=== PATIENT | male | born 1995 | race Caucasian/White ===

== ENCOUNTER 2020-07-23 11:18 | Inpatient (IN) | payer BC ==
[2020-07-23] MEDS ORDERED: Vancomycin 1 GM/200 ML BAG ONE (16:05)
[2020-07-23] MEDS ORDERED: Cefepime 2 GM VIAL ONE (16:05)
--- NOTE | 2020-07-23 16:16 | PDOC.HHP ---
Hospitalist HPI LLE pain History of Present Illness: Ms. Ross is a 25 year-old male with a PMHx of morbid obesity, MARTHA, and cellu litis who presents as a transfer from [facility] for LLE cellulitis. Patient reports that yesterday he noticed pain and redness to his L cervantes. Endorses fever to 103 prior to admission. Pt has a history of cellulitis in the same leg two prior times. Denies any trauma to the area. No history of diabetes. Denies chest pain, SOB, abdominal pain. Denies night sweats or chills. In ER initial vital signs 130/80, 86, 16, 99%. EKG with no ischemic changes. Lactic acid 0.95. CBC pending due to system wide delays winter. CBC at [facility] showed WBC of 17.9. Foot XR with no gas. BUn/Cr 10/0.82. Pt received vancomycin, cefepime at [facility] as well as 3 L NS. Patient septic and tachycardic to 120s at [facility]. Now improved s/p fluids. Pt admitted to hospitalist service for sepsis and cellulitis. Past History: PMHx: Cellulitis MARTHA PSHx: None FHx: Denies fhx of heart disease, DM, cancer Social: Denies tobacco, etoh, or drug use Hospitalist HPI ROS Constitutional: reports: fever, malaise. denies: chills, sweats, weakness, other Eyes: denies: pain, vision change, conjunctivae inflammation, eyelid inflammation, redness, other ENT: denies: ear pain, ear discharge, nose pain, nose discharge, nose congestion, mouth pain, mouth swelling, throat pain, throat swelling, other Respiratory: denies: cough, dry, shortness of breath, hemoptysis, SOB with excertion, pleuritic pain, sputum, wheezing, other Cardiovascular: denies: chest pain, palpitations, orthopnea, paroxysmal noc. dyspnea, edema, light headedness, other Gastrointestinal: denies: nausea, vomiting, abdominal pain, diarrhea, constipation, melena, hematochezia, other Genitourinary: denies: dysuria, frequency, incontinence, hematuria, retention, other Musculoskeletal: reports: leg pain. denies: neck pain, shoulder pain, arm pain, back pain, hand pain, foot pain, other Skin: reports: rash, lesions. denies: raghu, bruising, other Neurological: denies: weakness, numbness, incoordination, change in speech, confusion, seizures, other Hospitalist Exam General Appearance: NAD, awake alert General - other findings: Morbid obesity Eye: PERRL, anicteric sclera ENT: normocephalic atraumatic, no oropharyngeal lesions, moist mucosa Neck: supple, symmetric, no JVD, no thyromegaly, no lymphadenopathy, no carotid bruit Heart: RRR, no murmur, no gallops, no rubs, normal peripheral pulses Respiratory: CTAB, no wheezes, no rales, no ronchi, normal chest expansion, no tachypnea, normal percussion Gastrointestinal: soft, non-tender, non-distended, normal bowel sounds, no palpable masses, no hepatomegaly, no splenomegaly, no bruit Extremities: no cyanosis, 1+ LE edema Extremities - other findings: Erythema, induration to LLE Skin: normal turgor Skin - other findings: Erythema, induration to LLE, NV intact Neurological: cranial nerve grossly intact, normal sensation to touch, no weakness, no focal deficits, no new deficit Musculoskeletal: normal tone, normal strength, no muscle wasting Psychiatric: normal affect, normal behavior, A&O x 3 Hospitalist H&P A/P Plan: LLE Cellulitis 25M with hx of recurrent cellulitis presents with 2 days of worsening redness and swelling to LLE associated with fever. Pt with elevated WBC to 17.9 at OSH. Started on vanc, cefepime. No hx of DM, although suspect metabolic syndrome given morbid obesity. Plain films showed no evidence of gas. No suspicion of nec fasc at this time. No crepitus, bullae, or necrosis on exam. Will continue IV vancomycin, cefepime. Plan -IV vanc, cefepime -Blood cx, tylenol prn -Outline area of erythema -Elevate extremity Sepsis without septic shock Presented in sepsis without septic shock. WBC 17.9, pt tachycardic and mildly tachypnic at OSH. Now improved s/p IVF. Lactic acid 0.95. Repeat CBC pending. Will continue iv abx and plan as above. Plan: -Cont vanc, cefepime -IVF -Trend WBC, lactic acid, fever curve -Follow blood cx Morbid obesity Pt with morbid obesity. Given recurrent cellulitis suspect metabolic syndrome. Will check hgA1c. Plan -Hga1c -Counseled on weight reduction and bariatric surgery MARTHA Patient with hx of MARTHA. Will make CPAP available at night. DVT prophylaxis- lovenox FULL CODE Case discussed with attending physician, Dr. Mascorro.
[2020-07-23] MEDS ORDERED: Acetaminophen 650 MG Suppository PR PRN (16:21)
[2020-07-23] MEDS ORDERED: Acetaminophen 325 MG TAB PO PRN (16:21)
[2020-07-23] MEDS ORDERED: Pharmacy to Dose : VANC/ABX'S IVPB PRN (16:23)
[2020-07-23 17:50] VITALS: BMI 68.3
[2020-07-23] MEDS: Sodium Chloride 0.9% 1,000 ML IV SCH (17:55)
[2020-07-23 18:39] LABS: ALT (SGPT) 27 U/L (8-55); AST (SGOT) 22 U/L (5-34); Albumin 3.5 g/dL (3.5-5.0); Alkaline Phosphatase 72 U/L (40-110); Anion Gap 15 mmol/L (10-20); BUN (Urea Nitrogen) 10 mg/dL (8.9-20.6); Bilirubin, Total 0.8 mg/dL (0.2-1.2); Calc. Creatinine Clearance 432 mL/min (70-130); Calcium 8.8 mg/dL (7.8-10.44); Carbon Dioxide 19 mmol/L (22-29); Chloride 105 mmol/L (98-107); Globulin 4.1 g/dL (2.4-3.5); Glucose 104 mg/dL (70-105); Potassium 3.6 mmol/L (3.5-5.1); Protein, Total 7.6 g/dL (6.0-8.3); Sodium 135 mmol/L (136-145)
[2020-07-23 20:22] LABS: #Lymphocytes 1.2 thou/uL (1.20-3.40); #Monocytes 0.5 thou/uL (0.11-0.59); %Basophils 0.1 % (0.0-1.0); %Eosinophils 0.2 % (0.0-10.0); %Lymphocytes 10.2 % (21.0-51.0); %Neutrophils 85.5 % (42.0-75.0); Hemoglobin 12.6 g/dL (14.0-18.0); Mean Corpuscular HGB CONC 32.8 g/dL (32.0-36.0); Mean Corpuscular Hemoglobin 27.7 pg (27.0-31.0); Mean Corpuscular Volume 84.3 fL (78.0-98.0); Mean Platelet Volume 9.2 fL (7.4-10.4); Platelet Count 174 thou/uL (130-400); RBC Distribution Width 13.5 % (11.5-14.5); Red Blood Cell (RBC) Count 4.54 mill/uL (4.70-6.10); White Blood Cell (WBC) Count 11.7 thou/uL (4.8-10.8)
[2020-07-23] MEDS: VANCOMYCIN 2 GRAM/400 ML BAG 2 GM in Premix Bag 1 BAG IVPB SCH (20:22)
[2020-07-23 20:37] LABS: Hemoglobin A1c 5.8 % (4.0-6.0)
[2020-07-23 21:45] LABS: SARS-CoV-2 NAA Rapid Test Not Detected (NotDetected)
[2020-07-24] MEDS: Sodium Chloride 0.9% 1,000 ML IV SCH ×3 (02:51→23:06)
[2020-07-24] MEDS ORDERED: Cefepime 2 GM in Sodium Chloride 0.9% 100 ML IVPB SCH (03:00)
[2020-07-24] MEDS ORDERED: Vancomycin 1 GM in Premix Bag 1 BAG IVPB SCH (03:00)
[2020-07-24] MEDS: VANCOMYCIN 2 GRAM/400 ML BAG 2 GM in Premix Bag 1 BAG IVPB SCH ×3 (04:50→20:10)
[2020-07-24 05:20] LABS: #Eosinphils 0.1 thou/uL (0.0-0.7); #Lymphocytes 1.5 thou/uL (1.20-3.40); #Monocytes 0.8 thou/uL (0.11-0.59); #Neutrophils 8.2 thou/uL (1.40-6.50); %Basophils 0.2 % (0.0-1.0); %Eosinophils 0.7 % (0.0-10.0); %Lymphocytes 13.8 % (21.0-51.0); %Monocytes 7.4 % (0.0-10.0); %Neutrophils 77.9 % (42.0-75.0); Mean Corpuscular HGB CONC 32.7 g/dL (32.0-36.0); Mean Corpuscular Hemoglobin 27.1 pg (27.0-31.0); Mean Corpuscular Volume 82.9 fL (78.0-98.0); Mean Platelet Volume 8.9 fL (7.4-10.4); Platelet Count 169 thou/uL (130-400); RBC Distribution Width 13.3 % (11.5-14.5); Red Blood Cell (RBC) Count 4.06 mill/uL (4.70-6.10); White Blood Cell (WBC) Count 10.5 thou/uL (4.8-10.8)
[2020-07-24 05:46] LABS: Anion Gap 14 mmol/L (10-20); BUN (Urea Nitrogen) 9 mg/dL (8.9-20.6); Calc. Creatinine Clearance 473 mL/min (70-130); Calcium 8.4 mg/dL (7.8-10.44); Carbon Dioxide 18 mmol/L (22-29); Chloride 105 mmol/L (98-107); Glucose 127 mg/dL (70-105); Potassium 3.9 mmol/L (3.5-5.1); Sodium 133 mmol/L (136-145)
[2020-07-24] MEDS ORDERED: FLU VACC QS2020-21(6MOS UP)/PF 60 MCG/0.5 ML SYRINGE IM ONE (09:00)
--- NOTE | 2020-07-24 09:22 | PDOC.HOSPP ---
- Subjective Encounter Date: 07/24/20 Encounter Time: 09:19 Subjective: No overnight events. Erythema stable from yesterday. Reports resolution of fever/chills. Denies chest pain, SOB, or abdominal pain. Chart and medications reviewed. - Objective Vital Signs & Weight: Vital Signs (12 hours) Temp Pulse Resp BP Pulse Ox 07/24/20 07:53 98.7 F 122 H 20 121/76 97 07/24/20 04:47 99.3 F 100 18 170/73 H 97 07/24/20 00:27 98.5 F 94 18 159/69 H 98 Weight Weight 489 lb 8 oz Result Diagrams: 07/28/20 05:55 07/28/20 05:55 Hospitalist ROS - Review of Systems Constitutional: denies: fever, chills, sweats, weakness, malaise, other Eyes: denies: pain, vision change, conjunctivae inflammation, eyelid inflammation, redness, other ENT: denies: ear pain, ear discharge, nose pain, nose discharge, nose congestion, mouth pain, mouth swelling, throat pain, throat swelling, other Respiratory: denies: cough, dry, shortness of breath, hemoptysis, SOB with excertion, pleuritic pain, sputum, wheezing, other Cardiovascular: denies: chest pain, palpitations, orthopnea, paroxysmal noc. dyspnea, edema, light headedness, other Gastrointestinal: denies: nausea, vomiting, abdominal pain, diarrhea, constipation, melena, hematochezia, other Genitourinary: denies: dysuria, frequency, incontinence, hematuria, retention, other Musculoskeletal: denies: neck pain, shoulder pain, arm pain, back pain, hand pa in, leg pain, foot pain, other Skin: reports: rash. denies: lesions, raghu, bruising, other Neurological: denies: weakness, numbness, incoordination, change in speech, confusion, seizures, other - Medication Medications: Active Medications Generic Name Dose Route Start Last Admin Trade Name Freq PRN Reason Stop Dose Admin Acetaminophen 650 mg 07/23/20 16:21 07/23/20 20:21 Acetaminophen 325 Mg Tab PO 650 mg Q4H PRN Administration Headache/Fever/Mild Pain (1-3) Sodium Chloride 1,000 mls @ 100 mls/hr 07/23/20 16:30 07/24/20 02:51 Normal Saline 0.9% IV 1,000 mls .Q10H [facility] Administration Vancomycin HCl 2 gm/ Device 400 mls @ 200 mls/hr 07/23/20 20:00 07/24/20 04:50 IVPB 400 mls 0400,1200,2000 [facility] Administration Hospitalist Exam Vitals: Vital Signs (12 hours) Temp Pulse Resp BP Pulse Ox 07/24/20 07:53 98.7 F 122 H 20 121/76 97 07/24/20 04:47 99.3 F 100 18 170/73 H 97 07/24/20 00:27 98.5 F 94 18 159/69 H 98 Weight Weight 489 lb 8 oz General Appearance: NAD, awake alert Eye: PERRL, anicteric sclera ENT: normocephalic atraumatic, no oropharyngeal lesions, moist mucosa Neck: supple, symmetric, no JVD, no thyromegaly, no lymphadenopathy, no carotid bruit Heart: RRR, no murmur, no gallops, no rubs, normal peripheral pulses Respiratory: CTAB, no wheezes, no rales, no ronchi, normal chest expansion, no tachypnea, normal percussion Gastrointestinal: soft, non-tender, non-distended, normal bowel sounds, no palpable masses, no hepatomegaly, no splenomegaly, no bruit Extremities: no cyanosis, no clubbing, no edema Skin: normal turgor Skin - other findings: erythema nad induration to LL cervantes Neurological: cranial nerve grossly intact, normal sensation to touch, no weakness, no focal deficits, no new deficit Musculoskeletal: normal tone, normal strength, no muscle wasting Psychiatric: normal affect, normal behavior, A&O x 3 Hosp A/P - Plan LLE Cellulitis 25M with hx of recurrent cellulitis presents with 2 days of worsening redness and swelling to LLE associated with fever. Pt with elevated WBC to 17.9 at OSH improved to 10.5 this am. Will continue with vancomycin and cefazolin. Plan -IV vanc, cefazolin -Blood cx, tylenol prn -Outline area of erythema -Elevate extremity Sepsis without septic shock Presented in sepsis without septic shock. WBC 17.9, pt tachycardic and mildly tachypnic at OSH. Now improved s/p IVF. Lactic acid 0.95. Repeat CBC pending. Will continue iv abx and plan as above. Plan: -IVF, IV abx -Trend WBC, lactic acid, fever curve -Follow blood cx Morbid obesity Pt with morbid obesity. Counseled on weight loss, nutrition, and bariatric surgery. Patient would like a bariatric surgery referral on discharge. Plan -Bariatric surgery referral on discharge -F/u with PCP MARTHA Patient with hx of MARTHA. Will make CPAP available at night. DVT prophylaxis- lovenox FULL CODE Case discussed with attending physician, Dr. Mascorro.
[2020-07-24] MEDS: Enoxaparin Sodium 40 MG/0.4 ML SYRINGE SC SCH (09:39)
[2020-07-24] MEDS ORDERED: CEFAZOLIN 2 GM in Sodium Chloride 0.9% 100 ML IVPB SCH (14:00)
[2020-07-24] MEDS: CEFAZOLIN 2 GM in Premix Bag 1 BAG IVPB SCH ×2 (17:15→23:02)
[2020-07-24 20:48] LABS: Vancomycin, Trough 9.7 ug/mL
[2020-07-25 03:55] LABS: #Eosinphils 0.1 thou/uL (0.0-0.7); #Lymphocytes 1.5 thou/uL (1.20-3.40); #Monocytes 0.6 thou/uL (0.11-0.59); #Neutrophils 4.9 thou/uL (1.40-6.50); %Basophils 0.1 % (0.0-1.0); %Eosinophils 2.1 % (0.0-10.0); %Lymphocytes 21.2 % (21.0-51.0); %Monocytes 8.8 % (0.0-10.0); %Neutrophils 67.9 % (42.0-75.0); Hemoglobin 11.7 g/dL (14.0-18.0); Mean Corpuscular HGB CONC 34.4 g/dL (32.0-36.0); Mean Corpuscular Hemoglobin 28.9 pg (27.0-31.0); Mean Corpuscular Volume 84.2 fL (78.0-98.0); Mean Platelet Volume 8.3 fL (7.4-10.4); Platelet Count 145 thou/uL (130-400); RBC Distribution Width 13.1 % (11.5-14.5); Red Blood Cell (RBC) Count 4.06 mill/uL (4.70-6.10); White Blood Cell (WBC) Count 7.3 thou/uL (4.8-10.8)
[2020-07-25 04:12] LABS: Vancomycin, Trough 10.8 ug/mL
[2020-07-25 04:13] LABS: Anion Gap 15 mmol/L (10-20); BUN (Urea Nitrogen) 9 mg/dL (8.9-20.6); Calc. Creatinine Clearance 486 mL/min (70-130); Calcium 8.4 mg/dL (7.8-10.44); Carbon Dioxide 20 mmol/L (22-29); Chloride 106 mmol/L (98-107); Glucose 123 mg/dL (70-105); Potassium 3.6 mmol/L (3.5-5.1); Sodium 137 mmol/L (136-145)
[2020-07-25] MEDS: VANCOMYCIN 2 GRAM/400 ML BAG 2 GM in Premix Bag 1 BAG IVPB SCH ×4 (04:51→23:50)
[2020-07-25] MEDS: CEFAZOLIN 2 GM in Premix Bag 1 BAG IVPB SCH ×3 (07:03→21:05)
[2020-07-25] MEDS: Enoxaparin Sodium 40 MG/0.4 ML SYRINGE SC SCH (08:00)
[2020-07-25] MEDS: Sodium Chloride 0.9% 1,000 ML IV SCH ×2 (08:01→18:06)
--- NOTE | 2020-07-25 16:04 | PDOC.HOSPP ---
- Subjective Encounter Date: 07/25/20 Subjective: Reports doing better - Objective Vital Signs & Weight: Vital Signs (12 hours) Temp Pulse Resp BP Pulse Ox 07/25/20 14:02 81 18 135/73 97 07/25/20 07:59 97.7 F 85 20 119/77 98 Weight Weight 489 lb 8 oz I&O: 07/24/20 07/25/20 07/26/20 06:59 06:59 06:59 Intake Total 593 215 Balance 593 215 Result Diagrams: 07/25/20 03:46 07/25/20 03:46 Hospitalist ROS - Medication Medications: Active Medications Generic Name Dose Route Start Last Admin Trade Name Freq PRN Reason Stop Dose Admin Acetaminophen 650 mg 07/23/20 16:21 07/23/20 20:21 Acetaminophen 325 Mg Tab PO 650 mg Q4H PRN Administration Headache/Fever/Mild Pain (1-3) Enoxaparin Sodium 40 mg 07/24/20 09:00 07/25/20 08:00 Enoxaparin Sodium 40 Mg/0.4 Ml Syringe SC 40 mg 0900 [facility] Administration Sodium Chloride 1,000 mls @ 100 mls/hr 07/23/20 16:30 07/25/20 08:01 Normal Saline 0.9% IV 1,000 mls .Q10H [facility] Administration Cefazolin Sodium/Dextrose 2 gm 50 mls @ 100 mls/hr 07/24/20 14:00 07/25/20 15:19 / Device IVPB 50 mls Q8HR [facility] Administration Vancomycin HCl 2 gm/ Device 400 mls @ 200 mls/hr 07/25/20 11:00 07/25/20 10:49 IVPB 400 mls 0500,1100,1700,2300 [facility] Administration Sodium Chloride 10 ml 07/24/20 09:00 07/25/20 07:10 Flush - Normal Saline 10 Ml Syringe IVF Not Given Q12HR [facility] Hospitalist Exam Vitals: Vital Signs (12 hours) Temp Pulse Resp BP Pulse Ox 07/25/20 14:02 81 18 135/73 97 07/25/20 07:59 97.7 F 85 20 119/77 98 Weight Weight 489 lb 8 oz General Appearance: NAD Eye: PERRL, anicteric sclera ENT: normocephalic atraumatic Neck: supple, symmetric, no JVD, no thyromegaly Heart: RRR, no murmur, no gallops, no rubs Respiratory: CTAB, no wheezes, no rales Gastrointestinal: soft, non-tender, non-distended Skin: normal turgor (His left lower extremity has still red it is slightly warm to touch, I compared it to a picture he took yesterday and it seems slightly improved.) Hosp A/P (1) Morbid obesity Code(s): E66.01 - MORBID (SEVERE) OBESITY DUE TO EXCESS CALORIES Status: Acute (2) Sleep apnea Code(s): G47.30 - SLEEP APNEA, UNSPECIFIED Status: Acute (3) Cellulitis of lower extremity Code(s): L03.119 - CELLULITIS OF UNSPECIFIED PART OF LIMB Status: Acute - Plan Plan for today 07/25 ID----patient is improving but still the area is within the delineated borders, will continue with current IV antibiotics reevaluate tomorrow. Patient has obstructive sleep apnea due to morbid obesity he does have CPAP ordered. He is on Lovenox for DVT prophylaxis
[2020-07-26 04:57] LABS: #Eosinphils 0.2 thou/uL (0.0-0.7); #Lymphocytes 1.7 thou/uL (1.20-3.40); #Monocytes 0.5 thou/uL (0.11-0.59); #Neutrophils 4.2 thou/uL (1.40-6.50); %Basophils 0.6 % (0.0-1.0); %Eosinophils 3.2 % (0.0-10.0); %Lymphocytes 25.9 % (21.0-51.0); %Neutrophils 62.3 % (42.0-75.0); Hemoglobin 11.1 g/dL (14.0-18.0); Mean Corpuscular HGB CONC 33.3 g/dL (32.0-36.0); Mean Corpuscular Hemoglobin 28.2 pg (27.0-31.0); Mean Corpuscular Volume 84.8 fL (78.0-98.0); Mean Platelet Volume 8.4 fL (7.4-10.4); Platelet Count 158 thou/uL (130-400); Red Blood Cell (RBC) Count 3.93 mill/uL (4.70-6.10); White Blood Cell (WBC) Count 6.7 thou/uL (4.8-10.8)
[2020-07-26 05:13] LABS: Vancomycin, Trough 18.9 ug/mL
[2020-07-26] MEDS: CEFAZOLIN 2 GM in Premix Bag 1 BAG IVPB SCH ×3 (05:19→20:39)
[2020-07-26 05:25] LABS: Anion Gap 13 mmol/L (10-20); BUN (Urea Nitrogen) 9 mg/dL (8.9-20.6); Calc. Creatinine Clearance 522 mL/min (70-130); Calcium 8.4 mg/dL (7.8-10.44); Carbon Dioxide 21 mmol/L (22-29); Chloride 107 mmol/L (98-107); Glucose 112 mg/dL (70-105); Potassium 3.6 mmol/L (3.5-5.1); Sodium 137 mmol/L (136-145)
[2020-07-26] MEDS: VANCOMYCIN 2 GRAM/400 ML BAG 2 GM in Premix Bag 1 BAG IVPB SCH ×4 (05:28→22:12)
[2020-07-26] MEDS: Sodium Chloride 0.9% 1,000 ML IV SCH ×2 (05:32→14:13)
[2020-07-26] MEDS: Enoxaparin Sodium 40 MG/0.4 ML SYRINGE SC SCH (08:09)
--- NOTE | 2020-07-26 08:55 | PDOC.HOSPP ---
- Subjective Encounter Date: 07/26/20 Encounter Time: 08:53 Subjective: No overnight events. Reports improvement in his leg pain. Cellulitis remains at the outline, but appears less inflammed than previously examined. Denies chest pain, SOB, or abdominal pain. Chart and medications reviewed. - Objective Vital Signs & Weight: Vital Signs (12 hours) Temp Pulse Resp BP Pulse Ox 07/26/20 07:41 98.1 F 78 20 139/76 99 07/26/20 05:00 98.6 F 76 22 H 131/86 100 07/25/20 23:40 98.0 F 86 24 H 127/77 96 Weight Weight 489 lb 8 oz I&O: 07/25/20 07/26/20 07/27/20 06:59 06:59 06:59 Intake Total 593 2965 Balance 593 2965 Result Diagrams: 07/26/20 04:49 07/26/20 04:49 Hospitalist ROS - Review of Systems Constitutional: denies: fever, chills, sweats, weakness, malaise, other Eyes: denies: pain, vision change, conjunctivae inflammation, eyelid inflammation, redness, other ENT: denies: ear pain, ear discharge, nose pain, nose discharge, nose congestion, mouth pain, mouth swelling, throat pain, throat swelling, other Respiratory: denies: cough, dry, shortness of breath, hemoptysis, SOB with excertion, pleuritic pain, sputum, wheezing, other Cardiovascular: denies: chest pain, palpitations, orthopnea, paroxysmal noc. dys pnea, edema, light headedness, other Gastrointestinal: denies: nausea, vomiting, abdominal pain, diarrhea, constipation, melena, hematochezia, other Genitourinary: denies: dysuria, frequency, incontinence, hematuria, retention, other Musculoskeletal: reports: leg pain. denies: neck pain, shoulder pain, arm pain, back pain, hand pain, foot pain, other Skin: reports: rash. denies: lesions, raghu, bruising, other Neurological: denies: weakness, numbness, incoordination, change in speech, confusion, seizures, other - Medication Medications: Active Medications Generic Name Dose Route Start Last Admin Trade Name Freq PRN Reason Stop Dose Admin Acetaminophen 650 mg 07/23/20 16:21 07/23/20 20:21 Acetaminophen 325 Mg Tab PO 650 mg Q4H PRN Administration Headache/Fever/Mild Pain (1-3) Enoxaparin Sodium 40 mg 07/24/20 09:00 07/26/20 08:09 Enoxaparin Sodium 40 Mg/0.4 Ml Syringe SC 40 mg 0900 [facility] Administration Sodium Chloride 1,000 mls @ 100 mls/hr 07/23/20 16:30 07/26/20 05:32 Normal Saline 0.9% IV 1,000 mls .Q10H [facility] Administration Cefazolin Sodium/Dextrose 2 gm 50 mls @ 100 mls/hr 07/24/20 14:00 07/26/20 05:19 / Device IVPB 50 mls Q8HR [facility] Administration Vancomycin HCl 2 gm/ Device 400 mls @ 200 mls/hr 07/25/20 11:00 07/26/20 05:28 IVPB 400 mls 0500,1100,1700,2300 [facility] Administration Sodium Chloride 10 ml 07/24/20 09:00 07/26/20 08:09 Flush - Normal Saline 10 Ml Syringe IVF Not Given Q12HR [facility] Hospitalist Exam Vitals: Vital Signs (12 hours) Temp Pulse Resp BP Pulse Ox 07/26/20 07:41 98.1 F 78 20 139/76 99 07/26/20 05:00 98.6 F 76 22 H 131/86 100 07/25/20 23:40 98.0 F 86 24 H 127/77 96 Weight Weight 489 lb 8 oz General Appearance: NAD, awake alert Eye: PERRL, anicteric sclera ENT: normocephalic atraumatic, no oropharyngeal lesions, moist mucosa Neck: supple, symmetric, no JVD, no thyromegaly, no lymphadenopathy, no carotid bruit Heart: RRR, no murmur, no gallops, no rubs, normal peripheral pulses Respiratory: CTAB, no wheezes, no rales, no ronchi, normal chest expansion, no tachypnea, normal percussion Gastrointestinal: soft, non-tender, non-distended, normal bowel sounds, no palpable masses, no hepatomegaly, no splenomegaly, no bruit Extremities - other findings: LLE erythema and induration, improved from prior Skin - other findings: LLE calf cellulitis Neurological: cranial nerve grossly intact, normal sensation to touch, no weakness, no focal deficits, no new deficit Musculoskeletal: normal tone, normal strength, no muscle wasting Psychiatric: normal affect, normal behavior, A&O x 3 Hosp A/P - Plan LLE Cellulitis 25M with hx of recurrent cellulitis presented with 2 days of worsening redness and swelling to LLE associated with fever. Pt with elevated WBC to 17.9 at OSH improved to 6.7 this am. Will continue with vancomycin and cefazolin. Plan -IV vanc, cefazolin -Blood cx NGTD -Outline area of erythema -Elevate extremity Sepsis without septic shock Presented in sepsis without septic shock. WBC 17.9, pt tachycardic and mildly tachypnic at OSH. Now improved s/p IVF. Lactic acid 0.95. Repeat CBC pending. Will continue iv abx and plan as above. Now resolved. Plan: -IVF, IV abx -Trend WBC, lactic acid, fever curve -Blood cx NGTD Morbid obesity Pt with morbid obesity. Counseled on weight loss, nutrition, and bariatric surgery. Patient would like a bariatric surgery referral on discharge. Plan -Bariatric surgery referral on discharge -F/u with PCP MARTHA Patient with hx of MARTHA. Will make CPAP available at night. DVT prophylaxis- lovenox FULL CODE Case discussed with attending physician, Dr. Mascorro.
[2020-07-27] MEDS: Sodium Chloride 0.9% 1,000 ML IV SCH ×3 (04:04→21:21)
[2020-07-27] MEDS: VANCOMYCIN 2 GRAM/400 ML BAG 2 GM in Premix Bag 1 BAG IVPB SCH ×2 (04:05→13:13)
[2020-07-27] MEDS: CEFAZOLIN 2 GM in Premix Bag 1 BAG IVPB SCH ×3 (05:42→21:21)
[2020-07-27 05:46] LABS: #Eosinphils 0.3 thou/uL (0.0-0.7); #Lymphocytes 1.9 thou/uL (1.20-3.40); #Monocytes 0.6 thou/uL (0.11-0.59); #Neutrophils 5.1 thou/uL (1.40-6.50); %Basophils 0.1 % (0.0-1.0); %Eosinophils 3.2 % (0.0-10.0); %Lymphocytes 24.2 % (21.0-51.0); %Monocytes 7.5 % (0.0-10.0); %Neutrophils 65.1 % (42.0-75.0); Hemoglobin 11.3 g/dL (14.0-18.0); Mean Corpuscular HGB CONC 32.5 g/dL (32.0-36.0); Mean Corpuscular Hemoglobin 27.2 pg (27.0-31.0); Mean Corpuscular Volume 83.5 fL (78.0-98.0); Mean Platelet Volume 8.5 fL (7.4-10.4); Platelet Count 192 thou/uL (130-400); RBC Distribution Width 13.2 % (11.5-14.5); Red Blood Cell (RBC) Count 4.18 mill/uL (4.70-6.10); White Blood Cell (WBC) Count 7.9 thou/uL (4.8-10.8)
[2020-07-27 06:03] LABS: Anion Gap 13 mmol/L (10-20); BUN (Urea Nitrogen) 10 mg/dL (8.9-20.6); Calc. Creatinine Clearance 514 mL/min (70-130); Calcium 8.3 mg/dL (7.8-10.44); Carbon Dioxide 22 mmol/L (22-29); Chloride 107 mmol/L (98-107); Glucose 117 mg/dL (70-105); Potassium 3.6 mmol/L (3.5-5.1); Sodium 138 mmol/L (136-145)
[2020-07-27] MEDS: Enoxaparin Sodium 40 MG/0.4 ML SYRINGE SC SCH (08:24)
--- NOTE | 2020-07-27 09:16 | PDOC.HOSPP ---
- Subjective Encounter Date: 07/27/20 Encounter Time: 09:00 Subjective: No overnight events. Patient reports mild improvement in his cellulitis. Denies fever, night-sweats or chills. Denies SOB, chest pain, or abdominal pain. Chart and medications reviewed. - Objective Vital Signs & Weight: Vital Signs (12 hours) Temp Pulse Resp BP Pulse Ox 07/27/20 07:45 98.2 F 82 18 119/76 98 07/27/20 04:00 98.3 F 75 18 127/65 99 07/26/20 23:08 98.6 F 77 20 120/85 98 Weight Weight 489 lb 8 oz I&O: 07/26/20 07/27/20 07/28/20 06:59 06:59 06:59 Intake Total 2965 3560 Balance 2965 3560 Result Diagrams: 07/27/20 05:34 07/27/20 05:34 Hospitalist ROS - Review of Systems Constitutional: denies: fever, chills, sweats, weakness, malaise, other Eyes: denies: pain, vision change, conjunctivae inflammation, eyelid inflammation, redness, other ENT: denies: ear pain, ear discharge, nose pain, nose discharge, nose congestion, mouth pain, mouth swelling, throat pain, throat swelling, other Respiratory: denies: cough, dry, shortness of breath, hemoptysis, SOB with excertion, pleuritic pain, sputum, wheezing, other Cardiovascular: denies: chest pain, palpitations, orthopnea, paroxysmal noc. dyspnea, edema, light headedness, other Gastrointestinal: denies: nausea, vomiting, abdominal pain, diarrhea, constip ation, melena, hematochezia, other Genitourinary: denies: dysuria, frequency, incontinence, hematuria, retention, other Musculoskeletal: reports: leg pain. denies: neck pain, shoulder pain, arm pain, back pain, hand pain, foot pain, other Skin: reports: rash. denies: lesions, raghu, bruising, other Neurological: denies: weakness, numbness, incoordination, change in speech, confusion, seizures, other - Medication Medications: Active Medications Generic Name Dose Route Start Last Admin Trade Name Freq PRN Reason Stop Dose Admin Acetaminophen 650 mg 07/23/20 16:21 07/23/20 20:21 Acetaminophen 325 Mg Tab PO 650 mg Q4H PRN Administration Headache/Fever/Mild Pain (1-3) Enoxaparin Sodium 40 mg 07/24/20 09:00 07/27/20 08:24 Enoxaparin Sodium 40 Mg/0.4 Ml Syringe SC 40 mg 0900 [facility] Administration Sodium Chloride 1,000 mls @ 100 mls/hr 07/23/20 16:30 07/27/20 04:04 Normal Saline 0.9% IV 1,000 mls .Q10H [facility] Administration Cefazolin Sodium/Dextrose 2 gm 50 mls @ 100 mls/hr 07/24/20 14:00 07/27/20 05:42 / Device IVPB 50 mls Q8HR [facility] Administration Vancomycin HCl 2 gm/ Device 400 mls @ 200 mls/hr 07/25/20 11:00 07/27/20 04:05 IVPB 400 mls 0500,1100,1700,2300 [facility] Administration Sodium Chloride 10 ml 07/24/20 09:00 07/26/20 20:00 Flush - Normal Saline 10 Ml Syringe IVF Not Given Q12HR [facility] Hospitalist Exam Vitals: Vital Signs (12 hours) Temp Pulse Resp BP Pulse Ox 07/27/20 07:45 98.2 F 82 18 119/76 98 07/27/20 04:00 98.3 F 75 18 127/65 99 07/26/20 23:08 98.6 F 77 20 120/85 98 Weight Weight 489 lb 8 oz General Appearance: NAD, awake alert Eye: PERRL, anicteric sclera ENT: normocephalic atraumatic, no oropharyngeal lesions, moist mucosa Neck: supple, symmetric, no JVD, no thyromegaly, no lymphadenopathy, no carotid bruit Heart: RRR, no murmur, no gallops, no rubs, normal peripheral pulses Respiratory: CTAB, no wheezes, no rales, no ronchi, normal chest expansion, no tachypnea, normal percussion Gastrointestinal: soft, non-tender, non-distended, normal bowel sounds, no palpable masses, no hepatomegaly, no splenomegaly, no bruit Extremities - other findings: LLE eryethema, induration slighlty decreased from outline Skin: normal turgor Skin - other findings: LLE cellulitis Neurological: cranial nerve grossly intact, normal sensation to touch, no weakness, no focal deficits, no new deficit Musculoskeletal: normal tone, normal strength, no muscle wasting Psychiatric: normal affect, normal behavior, A&O x 3 Hosp A/P - Plan LLE Cellulitis 25M with hx of recurrent cellulitis presented with 2 days of worsening redness and swelling to LLE associated with fever. Pt with elevated WBC to 17.9 at OSH improved to 6.7 this am. Will continue with vancomycin and cefazolin. Plan -IV vanc, cefazolin -Blood cx NGTD -Outline area of erythema -Elevate extremity Sepsis without septic shock Presented in sepsis without septic shock. WBC 17.9, pt tachycardic and mildly tachypnic at OSH. Now improved s/p IVF. Lactic acid 0.95. Repeat CBC pending. Will continue iv abx and plan as above. Now resolved. Plan: -IVF, IV abx -Trend WBC, lactic acid, fever curve -Blood cx NGTD Morbid obesity Pt with morbid obesity. Counseled on weight loss, nutrition, and bariatric surgery. Patient would like a bariatric surgery referral on discharge. Plan -Bariatric surgery referral on discharge -F/u with PCP MARTHA Patient with hx of MARTHA. Will make CPAP available at night. DVT prophylaxis- lovenox FULL CODE Case discussed with attending physician, Dr. Mascorro.
[2020-07-27 11:14] LABS: Vancomycin, Trough 18.4 ug/mL
[2020-07-28] MEDS: CEFAZOLIN 2 GM in Premix Bag 1 BAG IVPB SCH ×3 (05:04→22:18)
[2020-07-28 06:16] LABS: #Eosinphils 0.2 thou/uL (0.0-0.7); #Lymphocytes 1.8 thou/uL (1.20-3.40); #Monocytes 0.4 thou/uL (0.11-0.59); #Neutrophils 4.5 thou/uL (1.40-6.50); %Basophils 0.3 % (0.0-1.0); %Eosinophils 2.8 % (0.0-10.0); %Lymphocytes 25.4 % (21.0-51.0); %Monocytes 6.4 % (0.0-10.0); Hemoglobin 11.3 g/dL (14.0-18.0); Mean Corpuscular HGB CONC 32.9 g/dL (32.0-36.0); Mean Corpuscular Hemoglobin 27.5 pg (27.0-31.0); Mean Corpuscular Volume 83.7 fL (78.0-98.0); Mean Platelet Volume 8.3 fL (7.4-10.4); Platelet Count 189 thou/uL (130-400); RBC Distribution Width 13.2 % (11.5-14.5)
[2020-07-28 06:47] LABS: Anion Gap 11 mmol/L (10-20); BUN (Urea Nitrogen) 8 mg/dL (8.9-20.6); Calc. Creatinine Clearance 507 mL/min (70-130); Calcium 8.3 mg/dL (7.8-10.44); Carbon Dioxide 25 mmol/L (22-29); Chloride 107 mmol/L (98-107); Glucose 111 mg/dL (70-105); Potassium 3.6 mmol/L (3.5-5.1); Sodium 139 mmol/L (136-145)
[2020-07-28] MEDS: Sodium Chloride 0.9% 1,000 ML IV SCH ×2 (08:11→11:45)
[2020-07-28] MEDS: Enoxaparin Sodium 40 MG/0.4 ML SYRINGE SC SCH (08:32)
[2020-07-28] MEDS: VANCOMYCIN 2 GRAM/400 ML BAG 2 GM in Premix Bag 1 BAG IVPB SCH ×2 (12:54→19:53)
--- NOTE | 2020-07-28 13:09 | PDOC.HOSPP ---
- Subjective Encounter Date: 07/28/20 Encounter Time: 12:50 Subjective: f/u for LLE cellulitis receiving Vancomycin/Ancef. Overall improved per pt. - Objective Vital Signs & Weight: Vital Signs (12 hours) Temp Pulse Resp BP Pulse Ox 07/28/20 11:35 97.9 F 76 14 121/83 96 07/28/20 07:40 97.8 F 77 18 154/82 H 100 07/28/20 04:00 98.5 F 82 20 123/81 99 Weight Weight 489 lb 8 oz I&O: 07/27/20 07/28/20 07/29/20 06:59 06:59 06:59 Intake Total 3560 3750 Balance 3560 3750 Result Diagrams: 07/28/20 05:55 07/28/20 05:55 Additional Labs: Microbiology 07/22/20 22:19 Nasal swab Influenza Types A,B Direct EIA - Final 07/22/20 21:45 Urine voided Urine Culture - Final NO GROWTH AT 48 HOURS 07/22/20 21:20 Venous blood - Right Arm Blood Culture - Final NO GROWTH IN 5 DAYS 07/22/20 21:10 Venous blood - Right Arm Blood Culture - Final NO GROWTH IN 5 DAYS Hospitalist ROS - Medication Medications: Active Medications Generic Name Dose Route Start Last Admin Trade Name Freq PRN Reason Stop Dose Admin Acetaminophen 650 mg 07/23/20 16:21 07/23/20 20:21 Acetaminophen 325 Mg Tab PO 650 mg Q4H PRN Administration Headache/Fever/Mild Pain (1-3) Enoxaparin Sodium 40 mg 07/24/20 09:00 07/28/20 08:32 Enoxaparin Sodium 40 Mg/0.4 Ml Syringe SC 40 mg 0900 MINH Administration Sodium Chloride 1,000 mls @ 100 mls/hr 07/23/20 16:30 07/28/20 11:45 Normal Saline 0.9% IV 1,000 mls .Q10H MINH Administration Cefazolin Sodium/Dextrose 2 gm 50 mls @ 100 mls/hr 07/24/20 14:00 07/28/20 05:04 / Device IVPB 50 mls Q8HR MINH Administration Vancomycin HCl 2 gm/ Device 400 mls @ 200 mls/hr 07/28/20 11:00 07/28/20 12:54 IVPB 400 mls 0500,1100,1700,2300 MINH Administration Sodium Chloride 10 ml 07/24/20 09:00 07/28/20 08:34 Flush - Normal Saline 10 Ml Syringe IVF Not Given Q12HR [facility] Hospitalist Exam Vitals: Vital Signs (12 hours) Temp Pulse Resp BP Pulse Ox 07/28/20 11:35 97.9 F 76 14 121/83 96 07/28/20 07:40 97.8 F 77 18 154/82 H 100 07/28/20 04:00 98.5 F 82 20 123/81 99 Weight Weight 489 lb 8 oz General Appearance: NAD, awake alert Eye: PERRL, anicteric sclera ENT: normocephalic atraumatic, no oropharyngeal lesions Neck: supple, symmetric, no JVD, no thyromegaly, no lymphadenopathy Heart: RRR, no gallops, no rubs, normal peripheral pulses Heart - other findings: S1, S2 Respiratory: CTAB, no wheezes, no rales, no ronchi, normal chest expansion Gastrointestinal: soft, non-tender, non-distended, normal bowel sounds, no palpable masses Gastrointestinal - other findings: morbid obesity Extremities: no cyanosis Skin - other findings: pink region on LLE mid-calf/dried skin, slight erythema of post calf Neurological: cranial nerve grossly intact, no new deficit Musculoskeletal: normal tone, normal strength, no muscle wasting Psychiatric: normal affect, A&O x 3 Hosp A/P (1) Cellulitis of lower extremity Code(s): L03.119 - CELLULITIS OF UNSPECIFIED PART OF LIMB Status: Acute Qualifiers: Laterality: left Qualified Code(s): L03.116 - Cellulitis of left lower limb Plan: Improving, continue Vancomycin/Ancef another 24h then convert to po option (2) Sleep apnea Code(s): G47.30 - SLEEP APNEA, UNSPECIFIED Status: Acute Plan: Nocturnal CPAP (3) Morbid obesity Code(s): E66.01 - MORBID (SEVERE) OBESITY DUE TO EXCESS CALORIES Status: Chronic Plan: consider bariatric surgery (4) Normocytic anemia Code(s): D64.9 - ANEMIA, UNSPECIFIED Status: Chronic Plan: No acute blood loss, serial monitoring, ? dilutional - Plan continue antibiotics, out of bed/ambulate Stable overall continue Vancomycin/Ancef another 24h Convert to po abx in 24h OOB/ambulate Saline lock IVF's Likely home in 24h
[2020-07-29] MEDS: VANCOMYCIN 2 GRAM/400 ML BAG 2 GM in Premix Bag 1 BAG IVPB SCH ×3 (00:21→08:40)
[2020-07-29] MEDS: CEFAZOLIN 2 GM in Premix Bag 1 BAG IVPB SCH (05:56)
[2020-07-29] MEDS: Enoxaparin Sodium 40 MG/0.4 ML SYRINGE SC SCH (08:40)
[2020-07-29 09:02] VITALS: TEMP 97.9
--- NOTE | 2020-07-29 10:06 | DIS ---
DATE OF ADMISSION: 07/23/2020 DATE OF DISCHARGE: 07/29/2020 DISCHARGE DIAGNOSES: 1. Left lower extremity cellulitis, improved. 2. Obstructive sleep apnea. 3. Morbid obesity. 4. Normocytic anemia. CONSULTATIONS: None. PERTINENT LABORATORY AND X-RAY FINDINGS: Hemoglobin A1c 5.8. Lactic acid level 1.0. CBC showed a white blood cell count ranging between 6.7 to 11.7. COVID-19 PCR not detected on 07/23/2020. Influenza A and B RNA not detected on 07/23/2020. Blood cultures x2 dated 07/22/2020 showed no growth at 5 days. Urine culture dated 07/22/2020 showed no growth at 48 hours. Portable chest x-ray dated 07/22/2020 showed no acute cardiopulmonary process. Two views of the left tibia and fibula dated 07/22/2020 showed no evidence of acute process. Three views of the left foot dated 07/22/2020 showed no acute process. HOSPITAL COURSE: The patient was initially admitted after presenting with cellulitis of the left lower extremity with initial white blood cell count of 17.9. The patient was placed on IV vancomycin and cefepime and given IV fluids. The patient was slow to clinically improve with IV antibiotics, however, did show clinical improvement the last 24 to 48 hours of the hospitalization. The patient kept the left lower extremity elevated with local skin care recommended. The patient transitioned from IV vancomycin and Ancef to Augmentin and will complete a 7-day course of oral antibiotics after discharge. I have examined the patient at the time of discharge and discussed followup instructions. The patient verbalizes understanding and agreement, ready for discharge on 07/29/2020. DISCHARGE MEDICATIONS: Augmentin 875 mg one tablet p.o. b.i.d. x7 days. FOLLOWUP: The patient may follow up with primary care provider of choice in the [place], [place] area. The patient also recommended to follow up with Bariat[facility] Surgical Service to consider gastric bypass or gastric sleeve due to morbid obesity. CONDITION ON DISCHARGE: Stable. ACTIVITY: Ad-estephania. DIET: Heart healthy. CODE STATUS: Full. DISPOSITION: To home on 07/29/2020. TIME SPENT: Total time preparing and coordinating discharge, 32 minutes. Job ID: [id number]
[2020-07-29 11:53] VITALS: BP 179/83
== END 2020-07-29 12:20 | disposition home or self-care (01) | DRG 872 ==
LOC: ERS 11:18 → T4-A 16:02 → SURG B 07-25 14:25
PROVIDERS: ADMIT Internal Medicine; ATTEND Family Medicine
DX: A41.9 Sepsis, unspecified organism (principal); L03.116 Cellulitis of left lower limb; Z68.44 Body mass index [BMI] 60.0-69.9, adult; Z90.89 Acquired absence of other organs; E66.01 Morbid (severe) obesity due to excess calories; G47.33 Obstructive sleep apnea (adult) (pediatric); D64.9 Anemia, unspecified; Z20.822 Contact with and (suspected) exposure to COVID-19
CPT/HCPCS: 0240U; 36415; 80048; 80053; 80202; 83036; 83605; 85025; 96365; 96367; J0690; J0692; J1650; J3370; J3490; J7030